=== PATIENT | male | born 1975 | race Caucasian/White ===

== ENCOUNTER 2016-08-25 04:50 | Emergency (ER) | payer OTHER ==
--- NOTE | 2016-08-25 05:09 | ED CLINICAL REPORT ---
Clinical Report - Physicians/Mid Levels [facility] [address] [address] 08/25/2016 4:52 Patient: RODRÍGUEZ DELANEY Time Seen: 04:59; initial patient contact. Arrived- By private vehicle. Historian- patient. HISTORY OF PRESENT ILLNESS Chief Complaint: EYE REDNESS and IRRITATION. This started yesterday, involves the left eye and is characterized as moderate in severity. The patient did not sustain an injury. Not injured from contact lenses. No direct trauma to the eyes. No chemical exposure. Eye discomfort, irritation, discharge, matting and itching. Eyelid swelling. Photophobia. No blurred vision, double vision, decreased vision or loss of vision. REVIEW OF SYSTEMS No fever, sore throat or cough. All systems otherwise negative, except as recorded above. ADDITIONAL NOTES The nursing notes have been reviewed. PHYSICAL EXAM Vital Signs: 08/25/2016 05:02 BP: 121/72. HR: 51. RR: 16. O2 saturation: 100%. Temp: 97.8 F. Pain level now: 0/10. Have been reviewed. Blood pressure normal. Bradycardic. Respiratory rate normal. Temperature normal. Oxygen saturation normal. HEENT: Head appears normal to external inspection. Rt Eye: Right eye exam normal. Lt Eye: Mild eyelid edema. Injected conjunctiva. Exudate present. No foreign body under the eyelid. No injury to the eyelids. Neck: Neck supple. No lymphadenopathy. Skin: No rash. PROGRESS AND PROCEDURES Disposition: Discharged home in good condition. Condition: good. CLINICAL IMPRESSION Acute mucopurulent and bacterial conjunctivitis of the left eye. INSTRUCTIONS Prescription Medications: Polytrim ophthalmic solution: instill 1 drop into the affected eye every 3 hours while awake for 7 days. Dispense five (5) mL. No refill. Substitution is permissible. Follow-up: Follow up with your doctor as needed. Call for an appointment. Screening today revealed the patient's blood pressure to be in the pre-hypertensive range. The patient should follow up with a primary care provider for blood pressure management. (Electronically signed by Richard Juarez Dr. 08/25/2016 7:45)
--- NOTE | 2016-08-25 05:09 | ED NURSING NOTES ---
Clinical Report - Nurses [facility] [address] [place] [address] 08/25/2016 4:52 [id number] Triage time 05:03. Acuity: LEVEL 4. Chief Complaint: (left eye swelling and redness). Alert. No acute distress. MARY ANN COMA SCORE: [place] Coma Scale: 15- eyes open spontaneously (4); best verbal response- oriented x 4 (5); best motor response- obeys commands (6). --05:05 Evelio Duran R.N. 05:02 08/25/16. BP: 121/72. HR: 51. RR: 16 (regular and unlabored). O2 saturation: 100% on room air. Temp: 97.8 F (temporal). Pain level now: 0/10. --05:05 Evelio Duran R.N. Weight: 75.2 kg stated. Height/Length: 66 inches Per Patient. BMI: 26.8. --05:03 Evelio Duran R.N. Medications None. --05:04 Evelio Duran R.N. Allergies No Known Drug Allergy. --05:04 Evelio Duran R.N. History Arrived by private vehicle. Historian: patient. Accompanied by family. Onset. (2 days ago). ( with burning and itching sensation). SOCIAL HX: Never smoker. No alcohol use or drug use. ABUSE ASSESSMENT: No report of abuse. SELF HARM ASSESSMENT: A self harm assessment was performed. The patient answered "no" to the question "Do you have thoughts of harming or killing yourself?". FALL RISK ASSESSMENT: Fall risk assessment completed. No fall risk identified. NUTRITIONAL RISK ASSESSMENT: The nutritional risk assessment revealed no deficiencies. FUNCTIONAL ASSESSMENT: Functional assessment: no impairments noted. LEARNING NEEDS ASSESSMENT: The learning needs assessment revealed no barriers. --05:05 Evelio Duran R.N. PROBLEMS: no known problems. ADDITIONAL SURGERIES: no known surgeries. Interventions ID band on patient. To treatment room. --05:05 Evelio Duran R.N. PHYSICAL ASSESSMENT Ambulatory to room. GENERAL / NEURO / PSYCH: Alert. Oriented X 4. Appears in no acute distress. HEENT: ( see triage assessment. Patient's left eye is noticeably swollen and sclera is reddened). Mucous membranes are pink. RESPIRATORY: Respirations not labored. CVS: Capillary refill less than 2 seconds. SKIN: Skin intact. Skin is warm and dry. --05:06 Eevlio Duran R.N. GENERAL / NEURO / PSYCH: Does not appear in pain or distress or anxious. --05:06 Evelio Duran R.N. NURSING PROGRESS NOTES Head of bed elevated. Reassurance given. Two patient identifiers checked. Call light placed in reach. Side rails up x 1. Bed placed in lowest position. Brakes of bed on. Patient ready for evaluation- chart flagged. Patient waiting for evaluation. --05:06 Evelio Duran R.N. ( Dr. Juarez currently present with patient). --05:07 Evelio Duran R.N. DISPOSITION / DISCHARGE Departure time: 05:14. Condition at departure: stable. No learning barriers present. Discharge instructions provided and reviewed with the patient. Reviewed medication(s) side effects, precautions, dosing and course information. Prescription(s) given to the patient. Treatments reviewed. Reviewed referrals. Patient verbalized understanding. Written instructions provided in Tongan. --05:14 Evelio Duran R.N. 05:02 08/25/16. BP: 121/72. HR: 51. RR: 16 (regular and unlabored). O2 saturation: 100% on room air. Temp: 97.8 F (temporal). Pain level now: 0/10. --05:14 Evelio Duran R.N. The patient was discharged home and accompanied by family. He left the Emergency Department ambulatory and via private vehicle. Patient driving. --05:15 Evelio Duran R.N. Locked/Released at 08/25/2016 5:15 by Evelio Duran R.N.
--- NOTE | 2016-08-25 05:09 | ED NURSING NOTES ---
Clinical Report - Nurses [facility] [address] [place] [address] 08/25/2016 4:52 [facility]: [id number] TRI[facility] Triage time 05:03. Acuity: LEVEL 4. Chief Complaint: (left eye swelling and redness). Alert. No acute distress. MARY ANN COMA SCORE: [place] Coma Scale: 15- eyes open spontaneously (4); best verbal response- oriented x 4 (5); best motor response- obeys commands (6). --05:05 Evelio Duran R.N. 05:02 08/25/16. BP: 121/72. HR: 51. RR: 16 (regular and unlabored). O2 saturation: 100% on room air. Temp: 97.8 F (temporal). Pain level now: 0/10. --05:05 Evelio Duran R.N. Weight: 75.2 kg stated. Height/Length: 66 inches Per Patient. BMI: 26.8. --05:03 Evelio Duran R.N. Medications None. --05:04 Evelio Duran R.N. Allergies No Known Drug Allergy. --05:04 Evelio uDran R.N. History Arrived by private vehicle. Historian: patient. Accompanied by family. Onset. (2 days ago). ( with burning and itching sensation). SOCIAL HX: Never smoker. No alcohol use or drug use. ABUSE ASSESSMENT: No report of abuse. SELF HARM ASSESSMENT: A self harm assessment was performed. The patient answered "no" to the question "Do you have thoughts of harming or killing yourself?". FALL RISK ASSESSMENT: Fall risk assessment completed. No fall risk identified. NUTRITIONAL RISK ASSESSMENT: The nutritional risk assessment revealed no deficiencies. FUNCTIONAL ASSESSMENT: Functional assessment: no impairments noted. LEARNING NEEDS ASSESSMENT: The learning needs assessment revealed no barriers. --05:05 Evelio Duran R.N. PROBLEMS: no known problems. ADDITIONAL SURGERIES: no known surgeries. Interventions ID band on patient. To treatment room. --05:05 Evelio Duran R.N. PHYSICAL ASSESSMENT Ambulatory to room. GENERAL / NEURO / PSYCH: Alert. Oriented X 4. Appears in no acute distress. HEENT: ( see triage assessment. Patient's left eye is noticeably swollen and sclera is reddened). Mucous membranes are pink. RESPIRATORY: Respirations not labored. CVS: Capillary refill less than 2 seconds. SKIN: Skin intact. Skin is warm and dry. --05:06 Evelio Duran R.N. GENERAL / NEURO / PSYCH: Does not appear in pain or distress or anxious. --05:06 Evelio Duran R.N. NURSING PROGRESS NOTES Head of bed elevated. Reassurance given. Two patient identifiers checked. Call light placed in reach. Side rails up x 1. Bed placed in lowest position. Brakes of bed on. Patient ready for evaluation- chart flagged. Patient waiting for evaluation. --05:06 Evelio Duran R.N. ( Dr. Juarez currently present with patient). --05:07 Evelio Duran R.N. DISPOSITION / DISCHARGE Departure time: 05:14. Condition at departure: stable. No learning barriers present. Discharge instructions provided and reviewed with the patient. Reviewed medication(s) side effects, precautions, dosing and course information. Prescription(s) given to the patient. Treatments reviewed. Reviewed referrals. Patient verbalized understanding. Written instructions provided in Dominican. --05:14 Evelio Duran R.N. 05:02 08/25/16. BP: 121/72. HR: 51. RR: 16 (regular and unlabored). O2 saturation: 100% on room air. Temp: 97.8 F (temporal). Pain level now: 0/10. --05:14 Evelio Duran R.N. The patient was discharged home and accompanied by family. He left the Emergency Department ambulatory and via private vehicle. Patient driving. --05:15 Evelio Duran R.N. Locked/Released at 08/25/2016 5:15 by Evelio Duran R.N.
--- NOTE | 2016-08-25 05:09 | ED CLINICAL REPORT ---
Clinical Report - Physicians/Mid Levels [facility] [address] [place] [address] 08/25/2016 4:52 Patient: RODRÍGUEZ DELANEY Time Seen: 04:59; initial patient contact. Arrived- By private vehicle. Historian- patient. HISTORY OF PRESENT ILLNESS Chief Complaint: EYE REDNESS and IRRITATION. This started yesterday, involves the left eye and is characterized as moderate in severity. The patient did not sustain an injury. Not injured from contact lenses. No direct trauma to the eyes. No chemical exposure. Eye discomfort, irritation, discharge, matting and itching. Eyelid swelling. Photophobia. No blurred vision, double vision, decreased vision or loss of vision. REVIEW OF SYSTEMS No fever, sore throat or cough. All systems otherwise negative, except as recorded above. ADDITIONAL NOTES The nursing notes have been reviewed. PHYSICAL EXAM Vital Signs: 08/25/2016 05:02 BP: 121/72. HR: 51. RR: 16. O2 saturation: 100%. Temp: 97.8 F. Pain level now: 0/10. Have been reviewed. Blood pressure normal. Bradycardic. Respiratory rate normal. Temperature normal. Oxygen saturation normal. HEENT: Head appears normal to external inspection. Rt Eye: Right eye exam normal. Lt Eye: Mild eyelid edema. Injected conjunctiva. Exudate present. No foreign body under the eyelid. No injury to the eyelids. Neck: Neck supple. No lymphadenopathy. Skin: No rash. PROGRESS AND PROCEDURES Disposition: Discharged home in good condition. Condition: good. CLINICAL IMPRESSION Acute mucopurulent and bacterial conjunctivitis of the left eye. INSTRUCTIONS Prescription Medications: Polytrim ophthalmic solution: instill 1 drop into the affected eye every 3 hours while awake for 7 days. Dispense five (5) mL. No refill. Substitution is permissible. Follow-up: Follow up with your doctor as needed. Call for an appointment. Screening today revealed the patient's blood pressure to be in the pre-hypertensive range. The patient should follow up with a primary care provider for blood pressure management. (Electronically signed by Richadr Juarez Dr. 08/25/2016 7:45)
--- NOTE | 2016-08-25 07:45 | ED DISCHARGE INSTRUCTIONS ---
Patient: RODRÍGUEZ DELANEY General Instructions [facility] VisitID: [id number] [place] [address] 41y, M Registration Date/Time: 08/25/2016 INSTRUCTIONS Prescription Medications: Polytrim ophthalmic solution: instill 1 drop into the affected eye every 3 hours while awake for 7 days. Dispense five (5) mL. No refill. Substitution is permissible. Follow-up: Follow up with your doctor as needed. Call for an appointment. Screening today revealed the patient's blood pressure to be in the pre-hypertensive range. The patient should follow up with a primary care provider for blood pressure management. ADDITIONAL INFORMATION Conjunctivitis, Bacterial You have a bacterial infection in the membranes covering the eye. The most common symptoms include a thick discharge from the eye, swollen eyelids, redness, eyelids sticking together upon awakening, and a gritty or scratchy feeling in the eye. The infection takes about 7-10 days to resolve with treatment. Home Care: Use prescribed eyedrops or ointment as directed to treat the infection. Apply a warm pack (towel soaked in warm water) to the affected eye 3-4 times a day. Do this just before applying medicine to the eye. Use a warm, wet cloth to wipe away crusting of the eyelids in the morning. This is caused by mucus drainage during the night. You may also use saline irrigating solution or artificial tears to rinse away mucus inside the eye. Do not put a patch over the eye. Wash your hands before and after touching the infected eye. This is to prevent spreading the infection to the other eye, and to other people. Do not share your towels or washcloths with others. You may use acetaminophen (Tylenol) or ibuprofen (Motrin, Advil) to control pain, unless another medicine was prescribed. [NOTE: If you have chronic liver or kidney disease or ever had a stomach ulcer or GI bleeding, talk with your doctor before using these medicines.] Do not wear contact lenses until your eyes have healed and all symptoms are gone. Follow Up with your doctor or this facility as directed, or if there has not been improvement within 5 days. Get Prompt Medical Attention if any of the following occur: Worsening vision Increasing pain in the eye Increasing swelling or redness of the eyelid Redness spreading around the eye Trimethoprim Sulfate, Polymyxin B Sulfate Eye drops, solution What is this medicine? POLYMYXIN B and TRIMETHOPRIM (jeff i MIX in B and trye METH oh prim) eye drops treat certain eye infections caused by bacteria. How should I use this medicine? This medicine is used in the eye. Follow the directions on the prescription label. Wash your hands before and after use. Tilt your head back slightly. Pull your lower eyelid down gently to form a pouch. Do not touch the tip of the dropper to your eye, fingertips, or other surface. Squeeze the prescribed number of drops into the pouch. Close the eye gently to spread the drops. Use your medicine at regular intervals. Do not take your medicine more often than directed. Use all of your medicine as directed even if you think your are better. Do not skip doses or stop your medicine early. Talk to your miller wood [employer] regarding the use of this medicine in children. While this drug may be prescribed for children and infants for selected conditions, precautions do apply. What side effects may I notice from receiving this medicine? Side effects that you should report to your doctor or health patient care provider as soon as possible: burning, stinging, or swelling change in vision or blurred vision that will not go away eye pain itching and redness rash Side effects that usually do not require medical attention (report to your doctor or health patient care provider if they continue or are bothersome): temporary blurred vision after applying temporary watering or stinging What may interact with this medicine? Interactions are not expected. Do not use any other eye products without advice of your doctor or health patient care provider. What if I miss a dose? If you miss a dose, use it as soon as you can. If it is almost time for your next dose, use only that dose. Do not use double or extra doses. Where should I keep my medicine? Keep out of the reach of children. Store at room temperature 15 to 25 degrees C (59 to 77 degrees F). Protect from light. To prevent the spread of infection, it is best to throw away any unused eye drops after you finish the course of treatment. Throw away any unused medicine after the expiration date. What should I tell my health care provider before I take this medicine? They need to know if you have any of these conditions: wear contact lenses an unusual or allergic reaction to polymyxin B, trimethoprim, other medicines, foods, dyes, or preservatives or trying to get breast-feeding What should I watch for while using this medicine? Check with your doctor or health patient care provider if your condition does not get better after 5 days, or if it gets worse. If you wear contact lenses, ask when you can use your lenses again. A burning or stinging reaction that does not go away may mean you are allergic to this product. Stop use and call your doctor or health patient care provider. To prevent the spread of infection, do not share eye products or other personal items with anyone else. You have been given the following additional information: Conjunctivitis, Bacterial Trimethoprim Sulfate, Polymyxin B Sulfate Eye drops, solution (Electronically signed by Richard Juarez Dr. 08/25/2016 7:45)
--- NOTE | 2016-08-25 07:45 | ED DISCHARGE INSTRUCTIONS ---
Patient: RODRÍGUEZ DELANEY General Instructions [facility] VisitID: [id number] [place] [address] 41y, M Registration Date/Time: 08/25/2016 INSTRUCTIONS Prescription Medications: Polytrim ophthalmic solution: instill 1 drop into the affected eye every 3 hours while awake for 7 days. Dispense five (5) mL. No refill. Substitution is permissible. Follow-up: Follow up with your doctor as needed. Call for an appointment. Screening today revealed the patient's blood pressure to be in the pre-hypertensive range. The patient should follow up with a primary care provider for blood pressure management. ADDITIONAL INFORMATION Conjunctivitis, Bacterial You have a bacterial infection in the membranes covering the eye. The most common symptoms include a thick discharge from the eye, swollen eyelids, redness, eyelids sticking together upon awakening, and a gritty or scratchy feeling in the eye. The infection takes about 7-10 days to resolve with treatment. Home Care: Use prescribed eyedrops or ointment as directed to treat the infection. Apply a warm pack (towel soaked in warm water) to the affected eye 3-4 times a day. Do this just before applying medicine to the eye. Use a warm, wet cloth to wipe away crusting of the eyelids in the morning. This is caused by mucus drainage during the night. You may also use saline irrigating solution or artificial tears to rinse away mucus inside the eye. Do not put a patch over the eye. Wash your hands before and after touching the infected eye. This is to prevent spreading the infection to the other eye, and to other people. Do not share your towels or washcloths with others. You may use acetaminophen (Tylenol) or ibuprofen (Motrin, Advil) to control pain, unless another medicine was prescribed. [NOTE: If you have chronic liver or kidney disease or ever had a stomach ulcer or GI bleeding, talk with your doctor before using these medicines.] Do not wear contact lenses until your eyes have healed and all symptoms are gone. Follow Up with your doctor or this facility as directed, or if there has not been improvement within 5 days. Get Prompt Medical Attention if any of the following occur: Worsening vision Increasing pain in the eye Increasing swelling or redness of the eyelid Redness spreading around the eye Trimethoprim Sulfate, Polymyxin B Sulfate Eye drops, solution What is this medicine? POLYMYXIN B and TRIMETHOPRIM (jeff i MIX in B and trye METH oh prim) eye drops treat certain eye infections caused by bacteria. How should I use this medicine? This medicine is used in the eye. Follow the directions on the prescription label. Wash your hands before and after use. Tilt your head back slightly. Pull your lower eyelid down gently to form a pouch. Do not touch the tip of the dropper to your eye, fingertips, or other surface. Squeeze the prescribed number of drops into the pouch. Close the eye gently to spread the drops. Use your medicine at regular intervals. Do not take your medicine more often than directed. Use all of your medicine as directed even if you think your are better. Do not skip doses or stop your medicine early. Talk to your biology internship regarding the use of this medicine in children. While this drug may be prescribed for children and infants for selected conditions, precautions do apply. What side effects may I notice from receiving this medicine? Side effects that you should report to your doctor or health certified social workers in health care as soon as possible: burning, stinging, or swelling change in vision or blurred vision that will not go away eye pain itching and redness rash Side effects that usually do not require medical attention (report to your doctor or health certified social workers in health care if they continue or are bothersome): temporary blurred vision after applying temporary watering or stinging What may interact with this medicine? Interactions are not expected. Do not use any other eye products without advice of your doctor or health certified social workers in health care. What if I miss a dose? If you miss a dose, use it as soon as you can. If it is almost time for your next dose, use only that dose. Do not use double or extra doses. Where should I keep my medicine? Keep out of the reach of children. Store at room temperature 15 to 25 degrees C (59 to 77 degrees F). Protect from light. To prevent the spread of infection, it is best to throw away any unused eye drops after you finish the course of treatment. Throw away any unused medicine after the expiration date. What should I tell my health care provider before I take this medicine? They need to know if you have any of these conditions: wear contact lenses an unusual or allergic reaction to polymyxin B, trimethoprim, other medicines, foods, dyes, or preservatives or trying to get breast-feeding What should I watch for while using this medicine? Check with your doctor or health certified social workers in health care if your condition does not get better after 5 days, or if it gets worse. If you wear contact lenses, ask when you can use your lenses again. A burning or stinging reaction that does not go away may mean you are allergic to this product. Stop use and call your doctor or health certified social workers in health care. To prevent the spread of infection, do not share eye products or other personal items with anyone else. You have been given the following additional information: Conjunctivitis, Bacterial Trimethoprim Sulfate, Polymyxin B Sulfate Eye drops, solution (Electronically signed by Richard Juarez Dr. 08/25/2016 7:45)
--- NOTE | 2016-08-25 07:45 | ED MED RECONCILIATION SUMMARY ---
Patient: RODRÍGUEZ DELANEY Medication Reconciliation Report [facility] VisitID: [id number] [address] [place] [address] 41y, M Registration Date/Time: 08/25/2016 Weight: 75.2 kg Height/Length: 66 in. BMI: 26.8 ALLERGIES: No Known Drug Allergy The patient's Home Medications are listed below: NONE. The source(s) of the original Home Medication information: Not obtained. The following Medications were given to the patient in the Emergency Department: None. The following Medications were prescribed to the patient: Polytrim ophthalmic solution: instill 1 drop into the affected eye every 3 hours while awake for 7 days. Dispense five (5) mL. No refill. Substitution is permissible. -- Richrad Juarez Dr.
--- NOTE | 2016-08-25 07:45 | ED MAR SUMMARY ---
..... Medication Administration Record [facility] [address] [place] [address] Patient: RODRÍGUEZ DELANEY Visit ID: [id number] 41y, M Weight: 75.2 kg Height/Length: 66 in BMI: 26.8 ALLERGIES: No Known Drug Allergy
--- NOTE | 2016-08-25 07:45 | ED MAR SUMMARY ---
..... Medication Administration Record [facility] [address] [place] [address] Patient: RODRÍGUEZ DELANEY Visit ID: [id number] 41y, M Weight: 75.2 kg Height/Length: 66 in BMI: 26.8 ALLERGIES: No Known Drug Allergy
--- NOTE | 2016-08-25 07:45 | ED MED RECONCILIATION SUMMARY ---
Patient: RODRÍGUEZ DELANEY Medication Reconciliation Report [facility] VisitID: [id number] [address] [place] [address] 41y, M Registration Date/Time: 08/25/2016 Weight: 75.2 kg Height/Length: 66 in. BMI: 26.8 ALLERGIES: No Known Drug Allergy The patient's Home Medications are listed below: NONE. The source(s) of the original Home Medication information: Not obtained. The following Medications were given to the patient in the Emergency Department: None. The following Medications were prescribed to the patient: Polytrim ophthalmic solution: instill 1 drop into the affected eye every 3 hours while awake for 7 days. Dispense five (5) mL. No refill. Substitution is permissible. -- Richard Juarez Dr.
== END 2016-08-25 05:12 | disposition home or self-care (01) ==
LOC: ED SRH 04:50
DX: H10.022 Other mucopurulent conjunctivitis, left eye (principal)